=== PATIENT | female | born 2000 | race Caucasian/White ===

== ENCOUNTER 2023-06-02 14:43 | Emergency (ER) | payer BC, SELFPAY ==
--- NOTE | ~2023-06-02 | CT_ITS ---
EXAMINATION: CT abdomen pelvis w con DATE: 06/02/2023 17:05 INDICATION: RUQ pain TECHNIQUE: Computed tomography (CT) of the abdomen and pelvis was performed with 100 mL Omnipaque-350 intravenous contrast. Automated exposure control and iterative reconstruction technique were employe d. The dose-length product was 184.77 mGy-cm. COMPARISON: None. FINDINGS: Lower thorax: Unremarkable Liver: Normal. Biliary/Gallbladder: Gallbladder is normal. No bile duct dilation. Pancreas: No mass or duct dilation. Spleen: Normal. Adrenals:No mass. Kidneys: No suspicious mass, obstructing stone, or hydronephrosis. GI tract: Moderate distal esophageal and gastric wall edema. No small or large bowel dilation. Normal appendix. Mesentery/Peritoneum: No ascites, mass, or free air. Retroperitoneum: No mass. Pelvis: Mostly empty urinary bladder. Normal uterus and bilateral ovaries. Soft Tissues: Soft tissues and body wall unremarkable. Bones: No acute osseous finding. IMPRESSION: Moderate esophagitis/gastritis. Reviewed, dictated and finalized at location K.
[2023-06-02 14:45] VITALS: BP 103/52; PULSE 69; RESP 16; TEMP 36.4; O2SAT 100
[2023-06-02] MEDS: ONDANSETRON INJ 4 MG/2 ML VIAL IV PUSH ×2 (16:18→18:39)
[2023-06-02] MEDS: SODIUM CHLORIDE 0.9% IV 1,000 ML 999 ML IV CONT (16:18)
[2023-06-02] MEDS: MORPHINE SULFATE (*CRX) 4 MG/ML INJ IV PUSH (16:20)
[2023-06-02 16:23] VITALS: BP 114/76; PULSE 75; RESP 12; O2SAT 97
[2023-06-02 16:27] LABS: Basophils Percent Auto 0.2 % (0.2-1.2); Eosinophils Absolute Auto 0.1 K/mm3 (0-0.3); Eosinophils Percent Auto 0.7 % (0-4.4); Hematocrit 43.7 % (37.0-47.0); Hemoglobin 14.4 g/dL (12.0-15.0); Immature Granulocyte Absolute 0.03 K/mm3 (0.00-0.031); Immature Granulocyte Percent A 0.3 % (0-0.5); Lymphocytes Absolute Auto 1.59 K/mm3 (0.9-3.2); Lymphocytes Percent Auto 15.9 % (18.3-44.2); Mean Platelet Volume 9.9 fl (7.4-10.4); Monocytes Absolute Auto 0.7 K/mm3 (0.1-0.6); Monocytes Percent Auto 6.7 % (2.6-8.5); Neutrophils Absolute Auto 7.6 K/mm3 (1.3-6.7); Neutrophils Percent Auto 76.2 % (45.5-73.1); Platelet Count Result 266 k/mm3 (150-375); Red Cell Distribution Width 12.6 % (11.5-14.5)
[2023-06-02 16:37] LABS: Alanine Aminotransferase 10 U/L (6-35); Albumin Level 4.2 g/dL (3.5-5.1); Alkaline Phosphatase 53 U/L (38-126); Anion Gap 6 mmol/L (4-12); Aspartate Amino Transferase 23 U/L (14-36); Bilirubin,Total 0.7 mg/dL (0.2-1.3); Blood Urea Nitrogen 10 mg/dL (7-17); Calcium 9.2 mg/dL (8.4-10.2); Carbon Dioxide 27 mmol/L (22-30); Chloride 104 mmol/L (98-107); Estimated CRCL calculation 124 ml/min; Estimated Glomerular Filt Rate > 60; Glucose 106 mg/dL (65-110); Lipase 90 U/L (23-300); Potassium 3.5 mmol/L (3.4-5.0); Sodium 137 mmol/L (137-145)
[2023-06-02 17:31] VITALS: BP 100/60; PULSE 74; RESP 19; O2SAT 100
--- NOTE | 2023-06-02 17:39 | ED.GENADULT ---
HPI - General Adult General Chief complaint: Abdominal Pain Stated complaint: abd pain Time Seen by Provider: 06/02/23 15:29 History of Present Illness HPI narrative: Patient is a 22-year-old female who presents ER with epigastric pain beginning 1 hour prior to arrival. In sharp and radiates to back. No nausea vomiting or diarrhea. Last meal was yesterday evening when she ate a pepper [employer] sandwich. Fevers or chills. Reports history of gallbladder issues in the past. Related Data Allergies Allergy/AdvReac Type Severity Reaction Status Date / Time vancomycin Allergy Rash Verified 06/02/23 16:17 Review of Systems Review of Systems: All systems reviewed & are unremarkable except as noted in HPI and below Constitutional: Constitutional: Reports no additional constitutional complaints ENT: Reports system reviewed and no additional complaints, except as documented Cardiovascular: Cardiovascular: Reports no additional cardiovascular complaints Respiratory: Respiratory: Reports no additional respiratory complaints Gastrointestinal: Gastrointestinal: Reports abdominal pain, Denies diarrhea, Reports nausea and Denies vomiting Genitourinary: Genitourinary: Reports no additional female genitourinary complaints PMF Past Medical History Medical History (Updated 06/02/23 @ 18:26 by Adis Link MD) Anorexia Surgical History Surgical History (Updated 06/02/23 @ 18:26 by Adis Link MD) No history of previous surgery Exam Narrative: GENERAL: Well-appearing, well-nourished, and in no acute distress. HEAD: Normocephalic, atraumatic. ENT: Mucous membranes moist. NECK: Supple. CHEST: Clear to auscultation. No respiratory distress. HEART: Regular rate and rhythm. Normal peripheral pulses. ABDOMEN: Soft, TTP RUQ with guarding, nondistended. EXTREMITIES: Normal range of motion. No edema. SKIN: Warm, dry, no rash. NEURO: Alert and oriented x3. PSYCH: Normal mood and affect. Course Course Emergency Course: tolerate GI cocktail. Discussed labs imaging results. Recommend low-fat diet and will start on PPI. Discharge home. Vital Signs Vital signs: Vital Signs Temperature 97.6 F 06/02/23 14:45 Pulse Rate 69 06/02/23 14:45 Respiratory Rate 16 06/02/23 14:45 Blood Pressure 103/52 L 06/02/23 14:45 Pulse Oximetry 100 06/02/23 14:45 Oxygen Delivery Room Air 06/02/23 14:45 Temperature 97.6 F 06/02/23 14:45 Pulse Rate 79 06/02/23 17:56 Respiratory Rate 13 06/02/23 17:56 Blood Pressure 105/50 L 06/02/23 17:56 Pulse Oximetry 100 06/02/23 17:56 Oxygen Delivery Room Air 06/02/23 14:45 Medical Decision Making Vital Signs Vital Signs: Vital Signs Temperature 97.6 F 06/02/23 14:45 Pulse Rate 69 06/02/23 14:45 Respiratory Rate 16 06/02/23 14:45 Blood Pressure 103/52 L 06/02/23 14:45 Pulse Oximetry 100 06/02/23 14:45 Oxygen Delivery Room Air 06/02/23 14:45 Temperature 97.6 F 06/02/23 14:45 Pulse Rate 79 06/02/23 17:56 Respiratory Rate 13 06/02/23 17:56 Blood Pressure 105/50 L 06/02/23 17:56 Pulse Oximetry 100 06/02/23 17:56 Oxygen Delivery Room Air 06/02/23 14:45 Lab Data 06/02/23 16:22 06/02/23 16:22 Labs: Lab Results 06/02/23 Range/Units 16:22 WBC 10.0 (4.5-10.0) K/mm3 RBC 4.80 (4.2-5.4) M/mm3 Hgb 14.4 (12.0-15.0) g/dL Hct 43.7 (37.0-47.0) % MCV 91.0 (80-100) fl MCH 30.0 (26-34) pg MCHC 33.0 (32-36) g/dl RDW 12.6 (11.5-14.5) % Plt Count 266 (150-375) k/mm3 MPV 9.9 (7.4-10.4) fl Immature Gran % (Auto) 0.3 (0-0.5) % Neut % (Auto) 76.2 H (45.5-73.1) % Lymph % (Auto) 15.9 L (18.3-44.2) % [place] % (Auto) 6.7 (2.6-8.5) % Eos % (Auto) 0.7 (0-4.4) % Baso % (Auto) 0.2 (0.2-1.2) % Lymph # (Auto) 1.59 (0.9-3.2) K/mm3 [place] # (Auto) 0.7 H (0.1-0.6) K/mm3 Eos # (Auto) 0.1 (0-0.3) K/mm3 Baso # (Auto) 0.0
[2023-06-02] MEDS: BELLADONNA ALK/PHENOB ELIX 10 ML, MAG HYDROX/ALUMINUM HYD/SIMETH 30 ML, LIDOCAINE HCL 2... PO (17:53)
[2023-06-02 17:56] VITALS: BP 105/50; PULSE 79; RESP 13; O2SAT 100
== END 2023-06-02 18:52 | disposition home or self-care (01) ==
PROVIDERS: Emergency Provider Emergency Medicine
DX: K29.70 Gastritis, unspecified, without bleeding (principal)
CPT/HCPCS: 36415; 74177; 80053; 81025; 83690; 85025; 96361; 96374; 96375; 96376; 99284; A9270; J2270; J2405; J7030; Q9967

== ENCOUNTER 2025-02-16 09:08 | Emergency (ER) | payer BC, SELFPAY ==
[2025-02-16 09:26] VITALS: BP 116/63; PULSE 94; RESP 16; TEMP 36.2; O2SAT 99
[2025-02-16 09:39] LABS: EDCOVIDSCREEN Negative (Negative); EDINFLUASCREEN Positive (Negative); EDINFLUBSCREEN Negative (Negative); EDSTREPNEGPOS1 Negative (Negative)
--- NOTE | 2025-02-16 09:47 | ED.URI ---
HPI - URI/Sore Throat General Chief Complaint: Upper Respiratory Infection Stated Complaint: FEVER/COUGH Time Seen by Provider: 02/16/25 09:26 Source: patient and RN notes reviewed Mode of arrival: ambulatory Limitations: no limitations History of Present Illness HPI Narrative: 24-year-old female patient presents today complaining of a 2 day history of sweats, chills, fever, body aches. States, I feel like trash. 1 week prior to this, she had a mild cough and sore throat that had started to resolve prior to these other symptoms beginning. She has been taking Tylenol cold and flu and Aleve with some relief. No history of asthma. Related Data Home Medications ?Medication ?Instructions ?Recorded ?Confirmed ?Last Taken ?Type duloxetine 60 mg capsule,delayed mg PO 02/16/25 Unknown History release erenumab-aooe 140 mg/mL mg subcut 02/16/25 Unknown History subcutaneous auto-injector (Aimovig Autoinjector) norgestimate 0.25 mg-ethinyl tablet 02/16/25 Unknown History estradiol 0.035 mg tablet (Estarylla) Allergies Allergy/AdvReac Type Severity Reaction Status Date / Time vancomycin Allergy Rash Verified 02/16/25 09:25 [facility] Past Medical History Medical History Anorexia Surgical History Surgical History No history of previous surgery Comments At time of signature, I have reviewed and agree with nursing past medical, surgical, social and family history unless otherwise noted. Please see nursing chart for further information. There is no relevant family history pertinent to the presenting complaint Exam Narrative: GENERAL: Ill-appearing, well-nourished, and in no acute distress. HEAD: Normocephalic, atraumatic. EYES: EOMI. No redness or drainage. Conjunctivae normal. ENT: Mucous membranes pink and moist. Nares clear. No rhinorrhea. TMs normal bilaterally. Throat normal. Uvula midline. NECK: Normal AROM. Supple. No lymphadenopathy. CHEST: No respiratory distress. Clear to auscultation. HEART: Regular rate and rhythm. No murmur appreciated. EXTREMITIES: Normal range of motion. No edema. SKIN: Warm, dry, no rash. Capillary refill normal. Normal skin turgor. NEURO: No focal deficits. Alert and oriented x3. Gait steady. PSYCH: Normal affect. No signs of depression or anxiety. Course Course Level of Care: Express Care Visit Vital Signs Vital signs: Vital Signs Temperature 97.1 F L 02/16/25 09:26 Pulse Rate 94 02/16/25 09:26 Respiratory Rate 16 02/16/25 09:26 Blood Pressure 116/63 02/16/25 09:26 Pulse Oximetry 99 02/16/25 09:26 Temperature 97.1 F L 02/16/25 09:26 Pulse Rate 94 02/16/25 09:26 Respiratory Rate 16 02/16/25 09:26 Blood Pressure 116/63 02/16/25 09:26 Pulse Oximetry 99 02/16/25 09:26 Reviewed [facility] Narrative Medical decision making narrative: 24-year-old female patient presents today complaining of a 2 day history of sweats, chills, fever, body aches. States, I feel like trash. 1 week prior to this, she had a mild cough and sore throat that had started to resolve prior to these other symptoms beginning. She has been taking Tylenol cold and flu and Aleve with some relief. No history of asthma. Upon exam, patient is mildly ill appearing. Remainder of exam is normal. Influenza a positive. Strep and COVID negative. Strep culture pending. Patient will take course of Tamiflu. She may continue OTC medication as well. Discussed duration of illness. Anticipatory guidance and ED precautions given. Differential Diagnosis Differential Diagnosis: COVID-19, influenza, URI, strep throat Lab Data [facility] Lab Attestation statement: I personally reviewed the patient's lab results. Labs: Lab Results 02/16/25 Range/Units 09:19 POC Influenza A Ag Positive (Negative) POC Influenza B Ag Negative (Negative) POC SARS CoV-2 Ag Negative (Negative) POC Grp A Strep Screen Negative (Negative) Critical Care Time Critical Care Time Critical Care Time: No Discharge Plan Discharge Clinical Impression: Influenza A Patient Disposition: Home Condition: Stable Instructions: Influenza (DC) Additional Instructions: You have tested positive for influenza A. Please take the Tamiflu as prescribed until gone. Continue [id number] medication for symptoms as well. Follow-up with your PCP in 1 week if symptoms are not improving. Go to the ER immediately if symptoms worsen. Patient Language: [place] Prescriptions: New oseltamivir [Tamiflu] 75 mg capsule 75 mg PO Q12H 5 Days Qty: 10 0RF No Action norgestimate-ethinyl estradiol [Estarylla] 0.25-0.035 mg tablet duloxetine 60 mg capsule,delayed release(DR/EC) PO Aimovig Autoinjector 140 mg/mL auto-injector SUBCUT pantoprazole 20 mg tablet,delayed release (DR/EC) 20 mg PO HS 28 Days Qty: 28 0RF Follow-up/Referrals: Joy,B [Other] Time of Disposition: 09:53
== END 2025-02-16 09:58 | disposition home or self-care (01) ==
PROVIDERS: Emergency Provider Nurse Practitioner
DX: J10.1 Influenza due to other identified influenza virus with other respiratory manifestations (principal); Z20.822 Contact with and (suspected) exposure to COVID-19
CPT/HCPCS: 87081; 87426; 87804; 87880; 99213; G0463